=== PATIENT | male | born 1950 | race Caucasian/White ===

== ENCOUNTER → 2017-01-07 | Outpatient (CLI) | payer OTHER ==
--- NOTE | 2017-01-07 12:05 | DI ---
XR HAND MIN 3VW,01/07/2017 10:10 AM: Clinical History: Left hand pain Previous Exam: None at this facility. Findings: Multiple views of the left hand are obtained, and demonstrate anatomic alignment without fractures. D egenerative changes are noted involving the distal interphalangeal joints with osteophyte formation. There is some widening of the scapholunate interval. Impression: 1. 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 2. Widening of the scapholunate joint most consistent with tears of the scapholunate ligaments.
== END ==
LOC: MOB RAD 10:13
PROVIDERS: ATTEND Family Medicine
DX: M79.642 Pain in left hand (principal); M19.042 Primary osteoarthritis, left hand; S63.8X2A Sprain of other part of left wrist and hand, initial encounter
CPT/HCPCS: 36415; 73130; 85379

== ENCOUNTER → 2017-01-10 | Outpatient (CLI) | payer OTHER | LOC: MMPC 10:00 | PROVIDERS: ATTEND Orthopaedic Surgery | DX: M67.432 Ganglion, left wrist (principal); M19.032 Primary osteoarthritis, left wrist | CPT/HCPCS: 20605; 20610; 99214; G0463; J0702 ==

== ENCOUNTER → 2017-02-03 | Outpatient (CLI) | payer OTHER | LOC: MMPC 09:00 | PROVIDERS: ATTEND Family Medicine | DX: I10 Essential (primary) hypertension (principal); E78.5 Hyperlipidemia, unspecified; E66.09 Other obesity due to excess calories; M79.642 Pain in left hand | CPT/HCPCS: 99214; G0463 ==

== ENCOUNTER → 2017-04-01 | Outpatient (CLI) | payer OTHER | LOC: MMPC 09:00 | PROVIDERS: ATTEND Family Medicine | DX: S80.11XD Contusion of right lower leg, subsequent encounter (principal); I82.431 Acute embolism and thrombosis of right popliteal vein | CPT/HCPCS: 99213; G0463 ==

== ENCOUNTER → 2017-04-13 | Outpatient (CLI) | payer OTHER ==
--- NOTE | 2017-04-13 12:42 | DI ---
US EXTREMITY NON-VASCULAR LTD,04/13/2017 9:03 AM: Clinical History: Hematoma the right lower extremity. Previous Exam: None at this facility. Findings: Multiple grayscale and color Doppler sonographic images are obtained in the region of the hematoma de monstrating no large fluid collection. Visible vascular structures are unremarkable. Impression: No evidence of cystic mass in the region imaged.
== END ==
LOC: US 09:00
PROVIDERS: ATTEND Family Medicine
DX: I82.431 Acute embolism and thrombosis of right popliteal vein (principal); S80.11XD Contusion of right lower leg, subsequent encounter
CPT/HCPCS: 76882